=== PATIENT | female | born 1985 | race Caucasian/White ===

== ENCOUNTER 2017-01-30 04:40 | Inpatient (IN) | payer OTHER ==
[2017-01-30] VITALS (9 sets, daily range): BP systolic 126–155; BP diastolic 82–101
[~2017-01-30] VITALS: Ht 167.6 cm; Wt 118.2 kg
[~2017-01-30 04:40] MED LIST: FLEXERIL10 MG PO; METFORMIN500 MG PO; PREDNISONE20 MG PO; PROTONIX40 MG PO
[2017-01-30 05:21] LABS: BASO % 0.2 % (0.0-1.0); EOS # 0.1 10*3/uL (0.0-0.4); EOS % 0.7 % (1.0-4.0); HEMATOCRIT 43.5 % (37.0-47.0); LYMPH % 15.6 % (27.0-41.0); MEAN CELL VOLUME 83.5 fl (81.0-99.0); MEAN CORPUSCULAR HGB 28.8 pg (27.0-31.0); MEAN CORPUSCULAR HGB CONC 34.5 g/dl (33.0-37.0); MEAN PLATELET VOLUME 8.7 fl (9.6-12.3); MONO # 0.9 10*3/uL (0.1-1.0); MONO % 7.3 % (3.0-9.0); NEUT # 9.8 10*3/uL (2.3-7.9); NEUT % 75.9 % (47.0-73.0); PLATELET COUNT AUTOMATED 322 10*3/uL (130-400); RED BLOOD COUNT 5.21 10*6/uL (4.10-5.10); RED CELL DISTRI WIDTH 12.6 % (0-14.5); WHITE BLOOD COUNT 12.9 10*3/uL (4.8-10.8)
--- NOTE | 2017-01-30 05:25 | NUR ---
LAB CALLED WITH CRITICAL VALUE OF LACTIC ACID 2.6
[2017-01-30 05:37] LABS: ALBUMIN 3.8 gm/dl (3.1-4.5); ALKALINE PHOSPHATASE 117 U/L (45-117); BUN 12 mg/dl (7-24); CHLORIDE 102 mmol/L (98-107); CREATININE 0.75 mg/dL (0.55-1.02); LIPASE 160 U/L (73-393); MAGNESIUM 1.9 mg/dL (1.5-2.1); POTASSIUM 3.8 mmol/L (3.5-5.1); SGOT/AST 18 IU/L (3-35); SGPT/ALT 38 U/L (12-78); SODIUM 135 mmol/L (136-145); TOTAL PROTEIN 8.6 gm/dL (6.4-8.2)
[2017-01-30 05:50] LABS: TROPONIN I < 0.015 ng/ml (<0.045)
--- NOTE | 2017-01-30 07:07 | NUR ---
PT STATES HER PAIN IS A 7 1/2 WHEN SHE COUGHS THE MORPHINE HELPED THE PAIN A LITTLE BIT.
--- NOTE | 2017-01-30 07:15 | NUR ---
PT REPORT ACCEPTED. SALINE AND ZITHROMAX INFUSING ORDERED. BED ASSIGNED, AWAITING OPPORTUNITY TO CALL NURSE REPORT TO FLOOR FOR ADMISSION. PT REPORTS IMPROVED PAIN WITH COUGH SINCE MORPHINE DOSING. PT AWAKE AND ALERT, NO DISTRESS.
--- NOTE | 2017-01-30 07:46 | NUR ---
ADMISSION TO FLOOR NOW. ALL SALINE BAGS NOW INFUSED. ZITHROMAX NOW INFUSED. ROCEPHIONE DOSE NOW STARTED AND IS INFUSING AT TIME OF TRANSFER UPSTAUIRS.
--- NOTE | 2017-01-30 07:55 | NUR ---
LACTIC ACID 2.6 DR REBOLLEDO NOTIFIED.
--- NOTE | 2017-01-30 08:00 | NUR ---
A 31, admitted to , under the services of SAMEER Parker DO with a diagnosis of SEVERE SEPSIS, PNA. Chief complaint is SOB. Patient arrived via bed from ER. Monitor applied. Initial assessment completed. Vital signs taken and recorded. SAMEER PARKER DO notified of admission to the unit. Orders received. See assessment for past medical history, medications and allergies. Patient and/or family oriented to unit. [facility] visitation policy reviewed. Clothing/patient valuable form completed. SIMONE FIELDS
[2017-01-30] MEDS ORDERED: LEXAPRO5 M1 PO (08:05)
[2017-01-30] MEDS ORDERED: VITAMIN E400 UNI1 PO (08:06)
[2017-01-30] MEDS ORDERED: OMEPRAZOLE40 MG PO (08:06)
--- NOTE | 2017-01-30 08:21 | NUR ---
MED REC UPDATED VIA PT RECALL.
--- NOTE | 2017-01-30 09:55 | NUR ---
LACTIC ACID 2.1 DR REBOLLEDO NOTIFIED. NO NEW ORDERS.
--- NOTE | 2017-01-30 15:24 | NUR ---
C/O CHEST PAIN OF 8.5/10 WHEN COUGHING. NORCO GIVEN AT THIS TIME.
--- NOTE | 2017-01-30 15:40 | NUR ---
HR WENT UP TO 150 PT WAS IN RESTROOM AND COUGHING. DR REBOLLEDO NOTIFIED NO NEW ORDERS OTHER THAN TO JUST KEEP AN EYE ON IT AND LET HER KNOW IF IT HAPPENS AGAIN.
--- NOTE | 2017-01-30 16:24 | NUR ---
NORCO EFF AT THIS TIME PER PT. WILL CONT TO MONITOR. CALL LIGHT IN REACH.
--- NOTE | 2017-01-30 19:09 | NUR ---
RECEIVED PHONECALL FROM ON LICENSE OF [facility] AND THEY STATED THAT PT NEEDS ANOTHER LACTIC ACID DRAWN BEFORE 7PM. NOTIFIED DR RITCHIE NO NEW ORDERS RECEIVED.
--- NOTE | 2017-01-30 22:31 | NUR ---
PATIENT'S BLOOD SUGAR CHECK WAS 255. DR RITCHIE NOTIFIED. SAID SHE DOESN'T NEED BLOOD SUGAR CHECKS D/T PATIENT HAVING PCOS AND TO D/C THE CHECKS.
[2017-01-31] VITALS: BP 142/85
--- NOTE | 2017-01-31 00:45 | NUR ---
PATIENT MEDICATED WITH NORCO FOR COMPLAINTS OF CHEST PAIN FROM COUGHING AND RESTORIL FOR COMPLAINTS OF INSOMNIA WITH EFFECTIVE RESULTS NOTED FOR BOTH. RESTING IN BED WITH EYES CLOSED AT THIS TIME. WILL CONTINUE TO MONITOR. CALL LIGHT IN REACH.
[2017-01-31 06:52] LABS: BASO % 0.2 % (0.0-1.0); HEMATOCRIT 41.6 % (37.0-47.0); LYMPH # 1.5 10*3/uL (1.3-4.4); LYMPH % 7.6 % (27.0-41.0); MEAN CORPUSCULAR HGB 29.5 pg (27.0-31.0); MEAN CORPUSCULAR HGB CONC 33.7 g/dl (33.0-37.0); MEAN PLATELET VOLUME 8.6 fl (9.6-12.3); MONO # 0.9 10*3/uL (0.1-1.0); MONO % 4.7 % (3.0-9.0); NEUT # 17.1 10*3/uL (2.3-7.9); NEUT % 86.4 % (47.0-73.0); PLATELET COUNT AUTOMATED 307 10*3/uL (130-400); RED BLOOD COUNT 4.74 10*6/uL (4.10-5.10); WHITE BLOOD COUNT 19.7 10*3/uL (4.8-10.8)
[2017-01-31 06:53] LABS: MEAN CELL VOLUME 87.8 fl (81.0-99.0)
[2017-01-31 07:04] LABS: ALBUMIN 3.4 gm/dl (3.1-4.5); ALKALINE PHOSPHATASE 99 U/L (45-117); BUN 8 mg/dl (7-24); CHLORIDE 108 mmol/L (98-107); CHOLESTEROL 244 mg/dL (<200); CREATININE 0.58 mg/dL (0.55-1.02); HDL CHOLESTEROL 49 mg/dl (40-60); LDL CHOLESTEROL 171 mg/dL (9-159); MAGNESIUM 2.3 mg/dL (1.5-2.1); PHOSPHOROUS 2.5 mg/dL (2.5-4.9); POTASSIUM 3.7 mmol/L (3.5-5.1); SGOT/AST 10 IU/L (3-35); SGPT/ALT 27 U/L (12-78); SODIUM 141 mmol/L (136-145); TOTAL PROTEIN 7.9 gm/dL (6.4-8.2); TRIGLYCERIDES 121 mg/dl (<150); VLDL CHOLESTEROL 24 mg/dL (6-40)
[2017-01-31 07:09] LABS: THYROID STIM HORMONE (HS) 0.375 uIU/ml (0.358-4.75)
--- NOTE | 2017-01-31 07:31 | NUR ---
Shift chart check completed.
[2017-01-31 07:44] LABS: VITAMIN D, 25-HYDROXY 28.9 ng/mL (30-100)
[2017-01-31 08:00] VITALS: BP 145/86
--- NOTE | 2017-01-31 11:08 | NUR ---
PATIENT MEDICATED WITH PO NORCO FOR PAIN 7/10 IN HER CHEST
[2017-01-31 11:42] VITALS: BP 119/62
--- NOTE | 2017-01-31 12:05 | NUR ---
PATIENT STATES MEDICATION EFFECTIVE
[2017-01-31 16:00] VITALS: BP 129/62
--- NOTE | 2017-01-31 16:36 | NUR ---
PATIENT MEDICATED WITH PO NORCO FOR PAIN IN HER CHEST RATED 7/10
--- NOTE | 2017-01-31 17:30 | NUR ---
PATIENT STATES MEDICATION EFFECTIVE
[2017-01-31 20:00] VITALS: BP 144/82
[2017-02-01] VITALS: BP 126/60
[2017-02-01 04:00] VITALS: BP 125/60
[2017-02-01 05:54] LABS: BASO % 0.1 % (0.0-1.0); EOS % 0.1 % (1.0-4.0); HEMATOCRIT 39.5 % (37.0-47.0); HEMOGLOBIN 13.1 g/dl (12.0-16.0); LYMPH # 2.8 10*3/uL (1.3-4.4); LYMPH % 17.4 % (27.0-41.0); MEAN CELL VOLUME 88.8 fl (81.0-99.0); MEAN CORPUSCULAR HGB 29.4 pg (27.0-31.0); MEAN CORPUSCULAR HGB CONC 33.2 g/dl (33.0-37.0); MEAN PLATELET VOLUME 8.8 fl (9.6-12.3); MONO % 6.3 % (3.0-9.0); NEUT # 11.9 10*3/uL (2.3-7.9); NEUT % 74.7 % (47.0-73.0); PLATELET COUNT AUTOMATED 301 10*3/uL (130-400); RED BLOOD COUNT 4.45 10*6/uL (4.10-5.10); RED CELL DISTRI WIDTH 13.2 % (0-14.5)
[2017-02-01 06:12] LABS: ALBUMIN 3.2 gm/dl (3.1-4.5); ALKALINE PHOSPHATASE 106 U/L (45-117); BUN 12 mg/dl (7-24); CHLORIDE 108 mmol/L (98-107); CREATININE 0.55 mg/dL (0.55-1.02); POTASSIUM 4.1 mmol/L (3.5-5.1); SGOT/AST 15 IU/L (3-35); SGPT/ALT 26 U/L (12-78); SODIUM 140 mmol/L (136-145); TOTAL PROTEIN 7.2 gm/dL (6.4-8.2)
--- NOTE | 2017-02-01 07:39 | NUR ---
Shift chart check completed.
[2017-02-01 08:00] VITALS: BP 124/57
--- NOTE | 2017-02-01 09:42 | NUR ---
Equipment Service Lead in to talk to patient. Patient states lives at home with . There are few steps in the home. Physician: Pharmacy: Home health services: none Patient's level of ADLs: INDEPENDENT Patient has working utilities: all working DME: none Follow-up physician's appointment after d/c: will be made by hospitalist nurse director upon discharge Does patient want to access PORTAL?: no Discharge plan discussed with patient, patient lives at home, is independent in adls and ambulation, denies any home needs. FRANK ROWLAND
--- NOTE | 2017-02-01 10:26 | NUR ---
MEDICATED PATIENT WITH PO NORCO FOR PAIN IN HER CHEST RATED 9/10
--- NOTE | 2017-02-01 11:15 | NUR ---
PATIENT STATES [facility]
--- NOTE | 2017-02-01 11:19 | NUR ---
MEDICATED WITH PO ROBITUSSUN FOR COUGHING
[2017-02-01 12:00] VITALS: BP 138/78
--- NOTE | 2017-02-01 12:17 | NUR ---
PATIENT STATES ROBITUSSIN EFFECTIVE
[2017-02-01 16:00] VITALS: BP 134/80
--- NOTE | 2017-02-01 18:47 | NUR ---
PATIENT MEDICATED WITH PO NORCO FOR PAIN IN HER CHEST FROM COUGHING RATED 7/10
[2017-02-01 20:00] VITALS: BP 138/83
--- NOTE | 2017-02-01 20:21 | NUR ---
PATIENT SITTING UP IN BED WATCHING TV. NO NEEDS MADE. RESPS EASY AND REGULAR. BED IN LOWEST POSITOIN, CALL LIGHT IN REACH
--- NOTE | 2017-02-01 23:03 | NUR ---
patient medicated with prn norco for pain rated 7/10 on a 0/10 pain scale, robitussin for cough, and restoril for sleeplessness. will monitor
[2017-02-02] VITALS: BP 128/77
--- NOTE | 2017-02-02 02:12 | NUR ---
PATIENT RESTING IN BED WIHT EYES CLOSED. MEDICATION SEEMS EFFECTIVE
--- NOTE | 2017-02-02 04:13 | NUR ---
PATIENT RESTING IN BED WITH NO S/S OF DISTRESS. RESPS EASY AND REGULAR. BED IN LOWEST POSITION, CALL LIGHT IN REACH
[2017-02-02 08:00] VITALS: BP 136/92
--- NOTE | 2017-02-02 08:47 | NUR ---
PT MEDICATED WITH PRN NORCO FOR CHEST PAIN WITH INSPIRATION. DENIES ANY FURTHER NEEDS. WILL CONTINUE TO MONITOR.
--- NOTE | 2017-02-02 11:15 | NUR ---
PT MEDICATED WITH PRN ROBITUSSIN FOR INCREASED COUGH. WILL COTNINUE TO MONITOR.
[2017-02-02] MEDS ORDERED: PREDNISONE10 MG PO (13:43)
[2017-02-02] MEDS ORDERED: ROBITUSSIN AC 110 ML PO (13:44)
[2017-02-02] MEDS ORDERED: AVPAK AZITHROM250 MG PO (13:44)
--- NOTE | 2017-02-02 13:58 | NUR ---
PT AMBULATED OFF FLOOR WITH HER BELONGINGS TO PRIVATE CAR. [place] DISCONTINUED. PRESCRIPTIONS GIVEN TO PATIENT.
== END 2017-02-02 14:46 | disposition home or self-care (01) | DRG 872 ==
LOC: ED 04:40 → EDHOLD 06:28 → 4E 06:28
PROVIDERS: Hospitalist; Internal Medicine; Student in an Organized Health Care Education/Training Program; ADMIT Internal Medicine
DX: A41.9 Sepsis, unspecified organism (principal); E87.2 Acidosis; Z68.41 Body mass index [BMI] 40.0-44.9, adult; E66.01 Morbid (severe) obesity due to excess calories; R65.20 Severe sepsis without septic shock; J40 Bronchitis, not specified as acute or chronic; E78.5 Hyperlipidemia, unspecified; K76.0 Fatty (change of) liver, not elsewhere classified; E28.2 Polycystic ovarian syndrome; R07.82 Intercostal pain; E83.41 Hypermagnesemia; Z80.1 Family history of malignant neoplasm of trachea, bronchus and lung; Z82.0 Family history of epilepsy and other diseases of the nervous system; Z88.2 Allergy status to sulfonamides; Z88.6 Allergy status to analgesic agent; Z88.8 Allergy status to other drugs, medicaments and biological substances; Z79.84 Long term (current) use of oral hypoglycemic drugs; Z79.899 Other long term (current) drug therapy

== ENCOUNTER 2017-12-06 20:05 | Emergency (ER) | payer BC ==
[~2017-12-06] VITALS: Ht 170.1 cm; Wt 122.5 kg
[~2017-12-06 20:05] MED LIST changes: +AVPAK AZITHROM250 MG PO; +LEXAPRO5 M1 PO; +OMEPRAZOLE40 MG PO; +PREDNISONE10 MG PO; +ROBITUSSIN AC 110 ML PO; +VITAMIN E400 UNI1 PO
[2017-12-06] MEDS ORDERED: PREDNISONE20 M1 PO (21:17)
== END 2017-12-06 21:38 | disposition home or self-care (01) ==
LOC: ED 20:05
DX: R60.0 Localized edema (principal); M25.571 Pain in right ankle and joints of right foot; Z88.2 Allergy status to sulfonamides; Z88.8 Allergy status to other drugs, medicaments and biological substances; Z79.899 Other long term (current) drug therapy

== ENCOUNTER 2018-07-30 06:23 | Emergency (ER) | payer BC ==
[~2018-07-30] VITALS: Ht 170.1 cm; Wt 117.9 kg
[~2018-07-30 06:23] MED LIST changes: +PREDNISONE20 M1 PO
[2018-07-30 07:09] LABS: BASO % 0.4 % (0.0-1.0); EOS # 0.2 10*3/uL (0.0-0.4); EOS % 2.7 % (1.0-4.0); HEMATOCRIT 44.5 % (37.0-47.0); HEMOGLOBIN 14.4 g/dl (12.0-16.0); LYMPH # 1.9 10*3/uL (1.3-4.4); LYMPH % 24.2 % (27.0-41.0); MEAN CELL VOLUME 85.7 fl (81.0-99.0); MEAN CORPUSCULAR HGB 27.7 pg (27.0-31.0); MEAN CORPUSCULAR HGB CONC 32.4 g/dl (33.0-37.0); MEAN PLATELET VOLUME 8.7 fl (9.6-12.3); MONO # 0.8 10*3/uL (0.1-1.0); MONO % 10.4 % (3.0-9.0); NEUT # 4.9 10*3/uL (2.3-7.9); NEUT % 61.9 % (47.0-73.0); PLATELET COUNT AUTOMATED 307 10*3/uL (130-400); RED BLOOD COUNT 5.19 10*6/uL (4.10-5.10); RED CELL DISTRI WIDTH 13.5 % (0-14.5); WHITE BLOOD COUNT 7.9 10*3/uL (4.8-10.8)
[2018-07-30 07:15] LABS: INTERNATIONAL NORM RATIO 0.9 (2.0-3.5)
[2018-07-30 07:31] LABS: ALBUMIN 3.7 gm/dl (3.1-4.5); ALKALINE PHOSPHATASE 102 U/L (45-117); BUN 10 mg/dl (7-24); CHLORIDE 101 mmol/L (98-107); CREATININE 0.71 mg/dL (0.55-1.02); SGOT/AST 19 IU/L (3-35); SGPT/ALT 37 U/L (12-78); SODIUM 136 mmol/L (136-145); TOTAL PROTEIN 8.4 gm/dL (6.4-8.2)
[2018-07-30] MEDS ORDERED: VIBRAMYCIN100 MG PO (08:51)
[2018-07-30] MEDS ORDERED: PROVENTIL HFA6.7 GM INH (08:51)
[2018-07-30] MEDS ORDERED: PREDNISONE20 M1 PO (08:51)
== END 2018-07-30 08:58 | disposition home or self-care (01) ==
LOC: ED 06:23
PROVIDERS: Emergency Medicine
DX: J18.9 Pneumonia, unspecified organism (principal); E66.01 Morbid (severe) obesity due to excess calories; Z88.6 Allergy status to analgesic agent; Z88.2 Allergy status to sulfonamides; Z79.899 Other long term (current) drug therapy

== ENCOUNTER 2019-06-06 12:50 | Emergency (ER) | payer BC ==
[~2019-06-06] VITALS: Ht 167.6 cm; Wt 120.2 kg
[~2019-06-06 12:50] MED LIST changes: +ANUSOL-HC25 MG R; +PROVENTIL HFA6.7 GM INH; +VIBRAMYCIN100 MG PO
[2019-06-06] MEDS ORDERED: TESSALON PERLE100 MG PO (14:39)
== END 2019-06-06 14:45 | disposition home or self-care (01) ==
LOC: ED 12:50
DX: J06.9 Acute upper respiratory infection, unspecified (principal); E78.5 Hyperlipidemia, unspecified; E66.01 Morbid (severe) obesity due to excess calories; Z88.2 Allergy status to sulfonamides; Z88.6 Allergy status to analgesic agent; Z79.899 Other long term (current) drug therapy

== ENCOUNTER 2019-12-12 19:57 | Emergency (ER) | payer BC ==
[~2019-12-12] VITALS: Ht 167.6 cm; Wt 113.4 kg
[~2019-12-12 19:57] MED LIST changes: +TESSALON PERLE100 MG PO
[2019-12-12 21:20] LABS: BILIRUBIN 1+ (NEGATIVE); BLOOD NEGATIVE (NEGATIVE); CLARITY CLOUDY (CLEAR); COLOR YELLOW (YELLOW); GLUCOSE NEGATIVE (NEGATIVE); KETONE 1+ (NEGATIVE); LEUKO ESTERASE NEGATIVE (NEGATIVE); NITRITE NEGATIVE (NEGATIVE); UROBILINOGEN 0.2 E.U./dl (0.2-1.0)
[2019-12-12 21:20] LABS: BASO % 0.2 % (0.0-1.0); EOS # 0.2 10*3/uL (0.0-0.4); EOS % 1.9 % (1.0-4.0); HEMATOCRIT 42.9 % (37.0-47.0); LYMPH # 2.3 10*3/uL (1.3-4.4); LYMPH % 26.5 % (27.0-41.0); MEAN CELL VOLUME 87.6 fl (81.0-99.0); MEAN CORPUSCULAR HGB 29.8 pg (27.0-31.0); MEAN PLATELET VOLUME 8.5 fl (9.6-12.3); MONO # 0.7 10*3/uL (0.1-1.0); MONO % 8.5 % (3.0-9.0); NEUT # 5.4 10*3/uL (2.3-7.9); NEUT % 62.5 % (47.0-73.0); PLATELET COUNT AUTOMATED 286 10*3/uL (130-400); WHITE BLOOD COUNT 8.6 10*3/uL (4.8-10.8)
[2019-12-12 21:21] LABS: RBC 0-2 rbc/hpf (0-2)
[2019-12-12 21:22] LABS: BACTERIA 2+; EPITHELIAL CELLS 51-100; MUCOUS 3+
[2019-12-12 21:34] LABS: BUN 16 mg/dl (7-24); CREATININE 0.69 mg/dL (0.55-1.02)
[2019-12-12 21:35] LABS: ALBUMIN 3.4 gm/dl (3.1-4.5); ALKALINE PHOSPHATASE 104 U/L (45-117); CHLORIDE 107 mmol/L (98-107); POTASSIUM 3.6 mmol/L (3.5-5.1); SGOT/AST 24 IU/L (3-35); SGPT/ALT 37 U/L (12-78); SODIUM 139 mmol/L (136-145); TOTAL PROTEIN 7.7 gm/dL (6.4-8.2)
== END 2019-12-13 01:58 | disposition home or self-care (01) ==
LOC: ED 19:57
PROVIDERS: Emergency Medicine
DX: Z03.818 Encounter for observation for suspected exposure to other biological agents ruled out (principal); B34.9 Viral infection, unspecified; R19.7 Diarrhea, unspecified; R63.0 Anorexia; E66.01 Morbid (severe) obesity due to excess calories; Z88.2 Allergy status to sulfonamides; Z88.6 Allergy status to analgesic agent; Z79.899 Other long term (current) drug therapy

== ENCOUNTER 2020-04-13 23:59 | Emergency (ER) | payer BC ==
[~2020-04-13] VITALS: Ht 167.6 cm; Wt 98.9 kg
[2020-04-14] MEDS ORDERED: ROSUVASTATIN CAL5 MG PO (00:09)
[2020-04-14 00:45] LABS: BASO % 0.2 % (0.0-1.0); EOS # 0.1 10*3/uL (0.0-0.4); HEMATOCRIT 41.1 % (37.0-47.0); LYMPH % 22.7 % (27.0-41.0); MEAN CELL VOLUME 85.6 fl (81.0-99.0); MEAN CORPUSCULAR HGB 28.8 pg (27.0-31.0); MEAN CORPUSCULAR HGB CONC 33.6 g/dl (33.0-37.0); MEAN PLATELET VOLUME 8.8 fl (9.6-12.3); MONO # 0.7 10*3/uL (0.1-1.0); MONO % 7.8 % (3.0-9.0); NEUT # 5.8 10*3/uL (2.3-7.9); PLATELET COUNT AUTOMATED 317 10*3/uL (130-400); RED CELL DISTRI WIDTH 12.9 % (0-14.5); WHITE BLOOD COUNT 8.6 10*3/uL (4.8-10.8)
[2020-04-14 01:00] LABS: ALBUMIN 3.6 gm/dl (3.1-4.5); ALKALINE PHOSPHATASE 81 U/L (45-117); BUN 18 mg/dl (7-24); CHLORIDE 107 mmol/L (98-107); CREATININE 0.51 mg/dL (0.55-1.02); LIPASE 181 U/L (73-393); POTASSIUM 3.2 mmol/L (3.5-5.1); SGOT/AST 27 IU/L (3-35); SGPT/ALT 49 U/L (12-78); SODIUM 141 mmol/L (136-145); TOTAL PROTEIN 7.7 gm/dL (6.4-8.2)
== END 2020-04-14 05:20 | disposition short-term general hospital (02) ==
LOC: ED 23:59
PROVIDERS: Nurse Practitioner Family
DX: K56.609 Unspecified intestinal obstruction, unspecified as to partial versus complete obstruction (principal); E87.6 Hypokalemia; Z88.2 Allergy status to sulfonamides; Z88.6 Allergy status to analgesic agent; Z79.899 Other long term (current) drug therapy

== ENCOUNTER 2021-05-13 20:28 | Emergency (ER) | payer BC ==
[~2021-05-13] VITALS: Ht 167.6 cm; Wt 72.6 kg
[~2021-05-13 20:28] MED LIST changes: +ROSUVASTATIN CAL5 MG PO
[2021-05-13 23:15] LABS: BILIRUBIN Negative (Negative); BLOOD Negative (Negative); CLARITY Clear (Clear); COLOR Yellow (Yellow); GLUCOSE Negative (Negative); KETONE Negative (Negative); LEUKO ESTERASE 1+ (Negative); NITRITE Negative (Negative)
[2021-05-13 23:23] LABS: BACTERIA 1+
[2021-05-13 23:36] LABS: BASO % 0.4 % (0.0-1.0); EOS # 0.1 10*3/uL (0.0-0.4); EOS % 1.8 % (1.0-4.0); HEMATOCRIT 37.5 % (37.0-47.0); MEAN CORPUSCULAR HGB 28.2 pg (27.0-31.0); MEAN CORPUSCULAR HGB CONC 32.8 g/dl (33.0-37.0); MONO # 0.6 10*3/uL (0.1-1.0); MONO % 7.6 % (3.0-9.0); NEUT # 3.7 10*3/uL (2.3-7.9); NEUT % 49.9 % (47.0-73.0); PLATELET COUNT AUTOMATED 309 10*3/uL (130-400); RED BLOOD COUNT 4.36 10*6/uL (4.10-5.10); RED CELL DISTRI WIDTH 13.1 % (0-14.5); WHITE BLOOD COUNT 7.4 10*3/uL (4.8-10.8)
[2021-05-13] MEDS ORDERED: CEPHALEXIN500 M1 PO (23:45)
[2021-05-13 23:53] LABS: ALBUMIN 3.1 gm/dl (3.1-4.5); ALKALINE PHOSPHATASE 85 U/L (45-117); BUN 14 mg/dl (7-24); CHLORIDE 109 mmol/L (98-107); CREATININE 0.57 mg/dL (0.55-1.02); POTASSIUM 3.6 mmol/L (3.5-5.1); SGOT/AST 16 IU/L (3-35); SGPT/ALT 24 U/L (12-78); SODIUM 139 mmol/L (136-145)
== END 2021-05-14 00:48 | disposition home or self-care (01) ==
LOC: ED 20:28
PROVIDERS: Emergency Medicine; Nurse Practitioner
DX: O23.41 Unspecified infection of urinary tract in pregnancy, first trimester (principal); N39.0 Urinary tract infection, site not specified; Z3A.01 Less than 8 weeks gestation of pregnancy